=== PATIENT | female | born 1995 | race Caucasian/White ===

== ENCOUNTER 2019-07-26 17:38 | Emergency (ER) | payer SELFPAY ==
[~2019-07-26] VITALS: Ht 157.5 cm; Wt 52.2 kg
--- OUTSIDE RECORDS SUMMARY | 2019-07-26 17:41 | XMS REPORT ---
Author Author [facility] Address Unknown Phone Unavailable Care Team Providers Care Network Systems Consultant Name Role Phone Unavailable Unavailable Payers Payer Name Policy Type Policy Number Effective Date Expiration Date Problems This patient has no known problems. Allergies, Adverse Reactions, Alerts Allergy Name Allergy Type Status Severity Reaction(s) Onset Date Inactive Date Treating Clinician Comments No Known Allergies DA Active U 2018-02-23 00:00:00 No Known Allergies DA Active U 2017-06-30 00:00:00 Medications This patient has no known medications. 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 FINDINGS: 5 lumbar-type artem tebrae are present in normal alignment. No evidence of compression fracture. The posterior elements appear intact. An IUD is projected over the central pelvis. IMPRESSION: 1. No acute changes identified in the lumbar spine. 2. IUD projected over the central pelvis. SL:01 at 1634 Reported and signed by: Dimitris Miller M.D. CC: Zahida Corcoran NP Technologist: RT Charles(Amita) Trnscrd Date/Time/By: 02/20/2019 (1863) : By: [email or web address] Orig Print D/T: S: 02/20/2019 (7156) PAGE 1 Signed Report URINALYSIS COMPLETE 2019-02-20 16:09:00 UA COLOR (test code=COLU) YELLOW YEL/STRAW UA APPEARANCE (test code=APPU) CLEAR CLEAR UA GLUCOSE DIPSTICK (test code=DGLUU) NEGATIVE NEGATIVE UA BILIRUBIN DIPSTICK (test code=BILU) NEGATIVE NEGATIVE UA KETONE DIPSTICK (test code=KETU) NEGATIVE NEGATIVE UA SPECIFIC GRAVITY (test code=SGU) 1.025 1.005-1.030 UA BLOOD DIPSTICK (test code=TIN) 2+ NEGATIVE UA PH DIPSTICK (test code=AMY) 6.0 5.0-7.0 UA PROTEIN DIPSTICK (test code=PROU) 1+ NEGATIVE UA UROBILINIOGEN DIPSTICK (test code=URO) 2.0 mg/dL 0.2-1.0 UA NITRITE DIPSTICK (test code=PETROS) NEGATIVE NEGATIVE UA LEUKOCYTE ESTERASE DIPSTICK (test code=LEUU) NEGATIVE NEGATIVE UA RBC (test code=RBCU) 4-10 RBC/HPF 0-3 UA WBC NO REFLEX (test code=WBCUCL) 0-3 WBC/HPF 0-3 UA BACTERIA (test code=BACU) TRACE /HPF NONE SEEN UA SQUAMOUS CELLS (test code=SQU) 0-5 /HPF NONE SEEN UA MUCUS (test code=MUCU) TRACE /LPF NONE SEEN UA AMORPHOUS SEDIMENT (test code=AMORU) 2+ /HPF NONE URINALYSIS [id number] 16:08:00* Test Item Value Reference Range Comments UA COLOR (test code=COLU) YELLOW YEL/STRAW UA APPEARANCE (test code=APPU) CLEAR CLEAR UA GLUCOSE DIPSTICK (test code=DGLUU) NEGATIVE UA BILIRUBIN DIPSTICK (test code=BILU) NEGATIVE UA KETONE DIPSTICK (test code=KETU) NEGATIVE UA SPECIFIC GRAVITY (test code=SGU) 1.005-1.030 UA BLOOD DIPSTICK (test code=TIN) NEGATIVE UA PH DIPSTICK (test code=AMY) 5.0-7.0 UA PROTEIN DIPSTICK (test code=PROU) NEGATIVE UA UROBILINIOGEN DIPSTICK (test code=URO) mg/dL 0.2-1.0 UA NITRITE DIPSTICK (test code=PETROS) NEGATIVE UA LEUKOCYTE ESTERASE DIPSTICK (test code=LEUU) NEGATIVE UA RBC (test code=RBCU) 4-10 RBC/HPF 0-3 UA WBC NO REFLEX (test code=WBCUCL) 0-3 WBC/HPF 0-3 UA BACTERIA (test code=BACU) TRACE /HPF NONE SEEN UA SQUAMOUS CELLS (test code=SQU) 0-5 /HPF NONE SEEN UA MUCUS (test code=MUCU) TRACE /LPF NONE SEEN UA AMORPHOUS SEDIMENT (test code=AMORU) 2+ /HPF NONE UR HCG [id number] 16:03:00* Test Item Value Reference Range Comments UR HCG QUAL (test code=HCGQLU) NEGATIVE NEGATIVE
== END 2019-07-26 18:07 | disposition home or self-care (01) ==
LOC: ER 17:38
DX: L03.012 Cellulitis of left finger (principal)
CPT/HCPCS: 99282